=== PATIENT | female | born 1960 | race Caucasian/White ===

== ENCOUNTER 2020-03-16 15:14 | Outpatient (REF) | payer OTHER, SELFPAY ==
[2020-03-19 15:56] LABS: SARS-CoV-2 RNA Not Detected (NotDetected)
[2020-03-19 15:57] LABS: SARS-CoV-2 RNA Source Nasal/Nares
== END 2020-03-16 15:34 ==
LOC: NCHCN 15:14
PROVIDERS: PCP Nurse Practitioner Family; Visit Provider Nurse Practitioner Family
DX: Z11.59 Encounter for screening for other viral diseases (principal)
CPT/HCPCS: U0003